=== PATIENT | female | born 1975 | race Caucasian/White ===

== ENCOUNTER 2018-06-15 07:33 | Outpatient (CLI) | payer OTHER | END 2018-06-15 07:44 | disposition home or self-care (01) | LOC: MAMO-SONO 07:33 | DX: Z12.31 Encounter for screening mammogram for malignant neoplasm of breast (principal); N63.11 Unspecified lump in the right breast, upper outer quadrant; N63.10 Unspecified lump in the right breast, unspecified quadrant; N64.4 Mastodynia; N60.11 Diffuse cystic mastopathy of right breast ==

== ENCOUNTER 2019-06-16 09:14 | Outpatient (CLI) | payer OTHER | END 2019-06-16 10:10 | disposition home or self-care (01) | LOC: MAMO-SONO 09:14 | DX: N64.4 Mastodynia (principal); N60.11 Diffuse cystic mastopathy of right breast; N63.10 Unspecified lump in the right breast, unspecified quadrant; N63.20 Unspecified lump in the left breast, unspecified quadrant; Z12.31 Encounter for screening mammogram for malignant neoplasm of breast ==

== ENCOUNTER 2019-06-20 10:38 | Outpatient (CLI) | payer OTHER | END 2019-06-20 10:40 | disposition home or self-care (01) | LOC: SONOGRAMA 10:38 | DX: N84.0 Polyp of corpus uteri (principal) ==

== ENCOUNTER → 2019-06-27 01:00 | Outpatient (CLI) | payer OTHER | END | disposition home or self-care (01) | LOC: LAB 01:00 | DX: E78.49 Other hyperlipidemia (principal) ==

== ENCOUNTER 2021-05-02 09:31 | Outpatient (CLI) | payer OTHER | END 2021-05-02 10:59 | disposition home or self-care (01) | LOC: MAMO-SONO 09:31 | PROVIDERS: ATTEND Obstetrics & Gynecology Maternal & Fetal Medicine | DX: N63.10 Unspecified lump in the right breast, unspecified quadrant (principal); N63.20 Unspecified lump in the left breast, unspecified quadrant; Z12.31 Encounter for screening mammogram for malignant neoplasm of breast; N64.4 Mastodynia; N60.11 Diffuse cystic mastopathy of right breast ==

== ENCOUNTER 2021-10-14 08:00 | Outpatient (CLI) | payer OTHER | END 2021-10-14 08:30 | disposition home or self-care (01) | LOC: PPH VACUNA 08:00 | PROVIDERS: ATTEND Emergency Medicine Pediatric Emergency Medicine | DX: Z23 Encounter for immunization (principal) ==

== ENCOUNTER 2022-08-11 11:18 | Outpatient (CLI) | payer OTHER | END 2022-08-11 13:11 | disposition home or self-care (01) | LOC: MAMO-SONO 11:18 | PROVIDERS: ATTEND Obstetrics & Gynecology Maternal & Fetal Medicine | DX: Z12.31 Encounter for screening mammogram for malignant neoplasm of breast (principal); N63.0 Unspecified lump in unspecified breast; N64.4 Mastodynia; N60.11 Diffuse cystic mastopathy of right breast ==

== ENCOUNTER 2022-08-21 09:49 | Outpatient (CLI) | payer OTHER | END 2022-08-21 10:03 | disposition home or self-care (01) | LOC: SONOGRAMA 09:49 | PROVIDERS: ATTEND Obstetrics & Gynecology Maternal & Fetal Medicine | DX: N84.0 Polyp of corpus uteri (principal); D25.9 Leiomyoma of uterus, unspecified ==

== ENCOUNTER 2022-12-04 07:02 | Day surgery (SDC) | payer OTHER ==
[~2022-12-04] VITALS: Ht 162.6 cm; Wt 59.0 kg
[~2022-12-04 07:02] MED LIST: AMICAR500 MG PO; ATACAND16 MG PO; TOPROL XL25 M1 PO
== END 2022-12-04 13:20 | disposition home or self-care (01) ==
LOC: CIR.AMB 07:02
PROVIDERS: ATTEND Surgery
DX: D49.3 Neoplasm of unspecified behavior of breast (principal); L90.5 Scar conditions and fibrosis of skin; N60.22 Fibroadenosis of left breast; N60.32 Fibrosclerosis of left breast; N60.02 Solitary cyst of left breast; Z88.6 Allergy status to analgesic agent; I10 Essential (primary) hypertension; Z20.822 Contact with and (suspected) exposure to COVID-19
CPT/HCPCS: 19301; 19281; L8699

== ENCOUNTER 2023-09-08 09:05 | Outpatient (CLI) | payer OTHER | END 2023-09-08 09:10 | disposition home or self-care (01) | LOC: MAMO-SONO 09:05 | PROVIDERS: ATTEND Surgery | DX: N60.11 Diffuse cystic mastopathy of right breast (principal); N60.12 Diffuse cystic mastopathy of left breast; Z12.31 Encounter for screening mammogram for malignant neoplasm of breast ==

== ENCOUNTER → 2024-07-26 | Outpatient (CLI) | payer OTHER | END | disposition home or self-care (01) | LOC: RAD 13:49 | DX: M16.0 Bilateral primary osteoarthritis of hip (principal); M17.0 Bilateral primary osteoarthritis of knee ==

== ENCOUNTER 2024-12-11 14:52 | Outpatient (CLI) | payer OTHER | END 2024-12-11 15:05 | disposition home or self-care (01) | LOC: MAMO-SONO 14:52 | PROVIDERS: ATTEND Obstetrics & Gynecology Maternal & Fetal Medicine | DX: N63.0 Unspecified lump in unspecified breast (principal); N64.4 Mastodynia; N60.11 Diffuse cystic mastopathy of right breast; Z12.31 Encounter for screening mammogram for malignant neoplasm of breast; N84.0 Polyp of corpus uteri ==

== ENCOUNTER → 2025-01-12 13:29 | Outpatient (CLI) | payer OTHER ==
[2025-01-12 13:38] LABS: HEMOGLOBIN 11.6 g/dL (12.0-15.00); MEAN CELL VOLUME 85.1 fL (80.00-100.00); MEAN CORPUSCULAR HEMOGLOBIN 28.3 pg (27.00-32.0); MEAN CORPUSCULAR HGB CONC 33.2 g/dl (32.0-36.0); PLATELET COUNT 257 K/uL (150-450); RED BLOOD COUNT 4.12 M/uL (4.00-6.00)
== END | disposition home or self-care (01) ==
LOC: LAB 13:11
PROVIDERS: ATTEND Orthopaedic Surgery
DX: D50.0 Iron deficiency anemia secondary to blood loss (chronic) (principal)

== ENCOUNTER 2025-01-12 13:30 | Outpatient (CLI) | payer OTHER | END 2025-01-12 13:33 | disposition home or self-care (01) | LOC: RAD 13:30 | PROVIDERS: ATTEND Orthopaedic Surgery | DX: M16.0 Bilateral primary osteoarthritis of hip (principal) ==

== ENCOUNTER → 2025-02-02 | Outpatient (CLI) | payer OTHER | END | disposition home or self-care (01) | LOC: MRI 10:30 | DX: M25.562 Pain in left knee (principal); M17.12 Unilateral primary osteoarthritis, left knee | CPT/HCPCS: 73721 ==

== ENCOUNTER 2025-04-05 14:11 | Outpatient (CLI) | payer OTHER | END 2025-04-05 14:17 | disposition home or self-care (01) | LOC: RAD 14:11 | PROVIDERS: ATTEND Orthopaedic Surgery | DX: M25.851 Other specified joint disorders, right hip (principal); M25.852 Other specified joint disorders, left hip ==

== ENCOUNTER 2025-09-24 14:58 | Outpatient (CLI) | payer OTHER | END 2025-09-24 15:02 | disposition home or self-care (01) | LOC: RAD 14:58 | PROVIDERS: ATTEND Orthopaedic Surgery | DX: M25.851 Other specified joint disorders, right hip (principal); M25.852 Other specified joint disorders, left hip ==